=== PATIENT | male | born 1950 | race Caucasian/White ===

== ENCOUNTER 2019-01-02 08:31 | Day surgery (SDC) | payer BC, MEDICARE ==
[2019-01-02] MEDS ORDERED: Acetaminophen 1,000 MG/100 ML Infusion Bottle IV ONE (08:32)
[2019-01-02] MEDS ORDERED: Lidocaine 1% PF 2 ML SDV INJECT ONE (08:32)
[2019-01-02] MEDS ORDERED: Glycopyrrolate 0.2 MG/ML 5 ML MDV IV ONE (08:32)
[2019-01-02] MEDS ORDERED: Ketamine 500 mg/10 ML MDV IV ONE (08:32)
[2019-01-02] MEDS ORDERED: Midazolam 1 MG/ML 2 ML SDV IV ONE (08:32)
[2019-01-02] MEDS ORDERED: Lactated Ringers 1,000 ML IV ONE (08:32)
[2019-01-02] MEDS ORDERED: Ketorolac 30 MG/ML SDV IVPUSH ONE (08:32)
[2019-01-02] MEDS ORDERED: Propofol 200 MG/20 ML SDV IV ONE (08:32)
[2019-01-02] MEDS ORDERED: Ondansetron 4 MG/2 ML SDV IVPUSH ONE (08:32)
[2019-01-02] MEDS ORDERED: Phenylephrine 1% 10 MG/ML SDV IV ONE (08:32)
[2019-01-02] MEDS ORDERED: Neostigmine Methylsulfate 10 MG/10 ML MDV IVPUSH ONE (08:32)
[2019-01-02] MEDS ORDERED: ePHEDrine 50 MG/ML SDV IV ONE (08:32)
[2019-01-02] MEDS ORDERED: Rocuronium 50 MG/5 ML Vial IV ONE (08:32)
[2019-01-02] MEDS ORDERED: fentaNYL 100 MCG/2 ML SDV IV ONE (08:32)
[2019-01-02] MEDS: Lactated Ringers 1,000 ML IV SCH ×2 (09:14→12:32)
[2019-01-02] MEDS ORDERED: cefOXitin 2 GM in Sodium Chloride 0.9% 100 ML IV ONE (10:30)
[2019-01-02] MEDS ORDERED: cefOXitin 2 GM Vial IV ONE (10:30)
[2019-01-02] MEDS ORDERED: Lidocaine 1% with EPINEPHrine 1:100,000 20 ML MDV INJECT ONE (10:39)
[2019-01-02] MEDS ORDERED: Bupivacaine 0.5% 50 ML MDV INJECT ONE (10:39)
[2019-01-02] MEDS ORDERED: Acetaminophen/HYDROcodone 325-5 MG Tab PO PRN (11:43)
--- NOTE | 2019-01-02 11:46 | PCM.OPNOTE ---
- General Post-Op/Procedure Note Date of Surgery/Procedure: 01/02/19 Operative Procedure(s): lap cholecystectomy Findings: critical view obtained. prominent cystic duct. top down dissection adhesions Pre Op Diagnosis: biliary dyskinesia Post-Op Diagnosis: Same Anesthesia Technique: General ET Tube, Local (7 ml 1 % lido with epi/0.5% buvipicaine) Primary Surgeon: Dwain Estrada Anesthesia Provider: Tiffanie Chau Pathology: gallbladder Fluid Replacement, Intraop: 1,500 EBL in mLs: 100 Complications: None Condition: Good Free Text/Narrative:: see dictation
--- NOTE | 2019-01-02 13:33 | OR ---
DATE OF OPERATION: 01/02/2019 SURGEON: Dwain Estrada MD PROCEDURE PERFORMED: Laparoscopic cholecystectomy. PREOPERATIVE DIAGNOSIS: Biliary dyskinesia. POSTOPERATIVE DIAGNOSIS: Biliary dyskinesia. INDICATIONS FOR PROCEDURE: This is a 68-year-old white male who has had a very long history of abdominal pain located in the right upper quadrant. Subsequent workup has demonstrated no stones, but biliary dyskinesia with nonfilling of the gallbladder. He was offered and accepted a laparoscopic cholecystectomy. INTRAOPERATIVE FINDINGS: The patient did have a prominent-sized cystic duct. No stones were noted. There was extensive scarring. A top-down dissection was essentially carried out. DESCRIPTION OF PROCEDURE: After an excellent general anesthetic was administered, the patient was prepped and draped in the usual sterile manner. A grand total of 7 mL of 1:1 mixture of 1% lidocaine with epinephrine and 0.5% bupivacaine was used to infiltrate our trocar sites. We started at the level of the umbilicus. After injection, a small vertical midline incision was made just below the umbilicus. Blunt dissection was carried out exposing the fascia. Two stay sutures of 0 Vicryl were placed on either side of the midline fascia, which was then incised. The abdominal cavity was entered after digital palpation to ensure no adhesions. A 10.5-mm Reyna trocar was inserted. The balloon was inflated, and the patient's abdomen was then insufflated to 15 mmHg using carbon dioxide. Under direct visualization, three 5 mm ports were placed; one in the midline epigastrium and two below the costal margin at the proximal level of the midclavicular and anterior axillary lines. There was extensive scarring noted. With careful dissection, we were able to dissect free the dome of the gallbladder. Attempts to grasp the gallbladder were not successful. A suture of 2-0 Ethibond was then placed through the dome of the gallbladder. This allowed us to create a loop, to allow us grasp the gallbladder and control it. Careful blunt dissection was carried out. The infundibulum and a wide cystic duct were encountered. We were able to dissect out what appeared to be the cystic artery as well. Prior to transecting all of these structures, the gallbladder was taken down off the wall of the gallbladder. There was some arterial bleeding encountered in the bed of the gallbladder fossa. This was controlled by application of multiple Endoclips, which controlled the bleeding. After completely dissecting free the gallbladder itself, it was apparent that there were no anatomic abnormalities, except for the rather wide cystic duct. Clips were placed on the cystic artery, two proximal and one distal, and then it was transected. Two Endoloops were placed on the gallbladder, and the cystic duct was transected. The contracted gallbladder was then passed into the specimen bag and delivered out through the umbilical port. The area was copiously irrigated and after demonstrating excellent hemostasis, we did pack some Surgicel over the area into the bed of the gallbladder fossa. The trocars were removed under direct visualization. The umbilical port was closed with a [id number] 0 Vicryl. The skin was closed with subcu 4-0 Vicryl. Steri- Strips were applied. Needle, sponge, and instrument counts were reported as correct. The patient was taken to recovery room in a good condition. EBL estimated to be approximately 100 mL. 1500 mL of crystalloid administered as well. /[id number] /MODL
--- NOTE | 2019-01-04 07:59 | PREOP ---
ADMISSION DATE: 01/02/2019 CHIEF COMPLAINT: Abdominal pain, nausea, and vomiting. HISTORY OF PRESENT ILLNESS: This is a 68-year-old white male who had a 4-year history of abdominal pain. Subsequent workup revealed what appears to be biliary dyskinesia. He underwent a laparoscopic cholecystectomy on Monday of this week and developed nausea and vomiting yesterday. He had been unable to keep anything down. noted dark urine and was brought into the emergency room where he was noted to have a mild leukocytosis as well as elevation in his LFTs. Flat plate of the abdomen was obtained and this was noted that he had a fair amount of stool without any marked abnormality was noted. The patient denies any aggravating or relieving factors. He is afebrile. He has a mild leukocytosis as well as an elevated creatinine level. He is being admitted for further workup. OUTPATIENT MEDICATIONS: Include the followin. Lipitor 80 mg daily. 2. NovoLog FlexPen 12 units subcu with meals. 3. Tresiba 26 units subcu daily. 4. Lisinopril 2.5 mg p.o. per day. 5. Aspirin 81 mg daily. 6. Multivitamin. 7. Vitamin D. PAST MEDICAL HISTORY: Significant for type 2 diabetes, hyperlipidemia, kidney stones, and coronary artery stenosis without mention of cerebral infarct. PAST SURGICAL HISTORY: Significant for carotid endarterectomy, laparoscopic cholecystectomy, and lithotripsy of kidney stone. FAMILY HISTORY: Remarkable for colorectal cancer in a sister, heart disease in the mother, diabetes in the brother. SOCIAL HISTORY: The patient is , has 4 children. He is a former smoker. Does not drink. REVIEW OF SYSTEMS: Notable for the following: HEENT: Unremarkable. CARDIOVASCULAR: Unremarkable. GASTROINTESTINAL: Notable for some abdominal pain, nausea, and vomiting. MUSCULOSKELETAL: Unremarkable. SKIN: Unremarkable. PHYSICAL EXAMINATION: GENERAL: This is a well-developed, well-nourished male, appearing in some mild distress. VITAL SIGNS: Pulse rate 83 and blood pressure 134/57, respiratory rate is 16, and 100% saturated on room air. HEENT: He is normocephalic, atraumatic. Pupils are equal and reactive. TMs are clear bilaterally. LUNGS: Clear to auscultation. HEART: Had a regular rate and rhythm. ABDOMEN: Reveals 4 trocar incisions. There is no marked tenderness or rebound. LABORATORY DATA: Laboratory evaluation was reviewed. His white count is 13.2, H and H of 13 and 41.3, platelet count of 240, has mild shift to the left with 10 bands. Electrolytes were notable for a chloride of 99, BUN of 37, and creatinine of 2.9, glucose was 164, total bilirubin is 2.3, AST is 119, ALT is 279, and alkaline phosphatase is 206. ASSESSMENT: Postoperative nausea and vomiting, dehydration with elevated transaminases and bilirubin. PLAN: The patient will be admitted for IV fluid hydration. We will fractionate his bilirubin as the laparoscopic cholecystectomy was rather difficult with the patient having a very contracted gallbladder. These may just represent postoperative changes due to removing the gallbladder from the liver. However, we do have to keep in mind the possibility of a leak or other issues. His creatinine prevents a CT scan with IV contrast at this point. We will be obtaining an ultrasound. We will keep the patient n.p.o., serial exams. /[id number] /MODL
== END 2019-01-02 14:16 | disposition home or self-care (01) ==
LOC: FB.SDS 08:31
PROVIDERS: ATTEND Surgery
DX: K81.2 Acute cholecystitis with chronic cholecystitis (principal); Q44.1 Other congenital malformations of gallbladder; I10 Essential (primary) hypertension; I65.21 Occlusion and stenosis of right carotid artery; E11.9 Type 2 diabetes mellitus without complications; E78.5 Hyperlipidemia, unspecified; E86.0 Dehydration; Z87.891 Personal history of nicotine dependence; Z80.0 Family history of malignant neoplasm of digestive organs; Z79.82 Long term (current) use of aspirin; Z79.4 Long term (current) use of insulin; Z79.899 Other long term (current) drug therapy
CPT/HCPCS: 00790-QZ; 82962; 88304; J0131; J0694; J1885; J2001; J2250; J2370; J2405; J2704; J2710; J3010; J3490; J7120